=== PATIENT | male | born 1990 | race Caucasian/White ===

== ENCOUNTER 2017-11-21 20:16 | Emergency (ER) | payer SELFPAY ==
[~2017-11-21] VITALS: Ht 175.3 cm; Wt 68.0 kg
[2017-11-21 20:19] VITALS: BP 136/80; PULSE 92; RESP 16; TEMP 99.3; O2SAT 98
[2017-11-21] MEDS ORDERED: BACT800T5 PO (23:04)
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
[2017-11-21] MEDS ORDERED: SULFAMETHOXAZOLE-TRIMETHOPRIM DS 800-160 MG TAB PO ONE (23:15)
== END 2017-11-21 23:58 | disposition home or self-care (01) ==
LOC: NEPD 20:16
DX: H44.001 Unspecified purulent endophthalmitis, right eye (principal); Z72.0 Tobacco use
CPT/HCPCS: 99283